=== PATIENT | male | born 1970 | race Caucasian/White ===

== ENCOUNTER 2024-03-25 10:29 | Outpatient (CLI) | payer BC, SELFPAY ==
[2024-03-25] VITALS (8 sets, daily range): BP systolic 118–156; BP diastolic 79–99; PULSE 40–47; RESP 12–18; TEMP 36.7; O2SAT 96–98
--- NOTE | 2024-03-25 10:57 | PDOC.PAIN ---
Date of service: 03/25/24 Time of Service: 11:25 Pain Managment Procedure Note Procedure Note Procedure Note: Lumbar Transforaminal Epidural Steroid Injection ? Location: RIGHT L3 and L4 ? Pre-procedure Diagnosis: M54.17-Radiculopathy, lumbosacral region M54.16 Radiculopathy, lumbar region ? Post-procedure Diagnosis:? The same as above ? Sedation:? none ? Estimated blood loss:? less than 2 cc ? Surgeon:? Mina Dickson MD COMMENT: Patient has right radicular pain to his knee with some foraminal narrowing at L4 through lesser degree at L3 ? Procedure Detail:?? The procedure and potential risks were explained to the patient and informed written consent was obtained. The patient was escorted to the procedure room and placed in the prone position. Pillows were utilized for proper positioning and comfort. Time out was performed in the procedure room with nursing staff confirming the patient's identity, procedure to be performed, allergies, and any blood thinning or anti-platelet medications. The patient's lower back was prepped with ChloraPrep and draped in a sterile fashion. Sterile gloves were used, a face mask was worn, and new single dose vials of all medications were used with the top being swabbed with alcohol and given time to dry prior to withdrawal of medication. A right-sided oblique fluoroscopic view was obtained, with visualization of L4-5. Lidocaine 1% was used to anesthetize the skin. The tip of a 22-gauge, Quincke needle was advanced toward the 6 o'clock position of the superior pedicle at the target level.? It was advanced just under the pedicle to the neural foramen L4-5. Correct needle placement was confirmed through review of the fluoroscopy. Next, following negative aspiration, 1cc's of Omnipaque 240 contrast was injected under live fluoroscopy which showed good flow throughout the epidural space and no evidence of vascular flow or flow into adjacent compartments. Next, following negative aspiration, 7.5mg of preservative-free dexamethasone and 0.5ml of 0.5% bupivacaine was injected. The needle was gently removed.? The procedure was also performed in the same fashion at L3-4.? The patient tolerated the procedure well.? Permanent images saved and recorded. Plan:? Follow up prn COMMENT: If still having pain would proceed with interlaminar at L4?5 with catheter to the right as difficult access to the foramen. If pain is more axial back consider medial branch blocks and radiofrequency ablation.
[2024-03-25] MEDS: Omnipaque 240 MG/ML 50 ML BTL IJ (11:28)
[2024-03-25] MEDS: Bupivacaine 0.5% Pres-Free 10 ML VIAL IJ (11:30)
[2024-03-25] MEDS: Dexamethasone Sod. Phos./Pres-Free 10 MG/ML VIAL IJ (11:31)
[2024-03-25] MEDS: Nerve Block Tray 1 EACH MC (11:31)
--- NOTE | 2024-03-25 18:00 | DI.RAD_ITS ---
Exam(s) XR PAIN CLINIC LUMBAR SP 2V EXAM: XR PAIN CLINIC LUMBAR SP 2V CLINICAL HISTORY: DX: Thoracic Radiculopathy TECHNIQUE: 2D and realtime digital imaging was performed. Radiologist not present. CONTRAST MATERIAL: None. COMPARISON: No exams were available for comparison FINDINGS: Fluoroscopy was provided for pain management therapy. Please refer to procedure report or details. Radiation Exposure Index: Ka,r=22.68 mGy IMPRESSION: As above. RADIATION DOSE DELIVERED:
== END 2024-03-25 10:30 | disposition home or self-care (01) ==
LOC: PC 10:29
PROVIDERS: PCP Internal Medicine; Visit Provider Anesthesiology Pain Medicine
DX: M54.16 Radiculopathy, lumbar region (principal); M54.17 Radiculopathy, lumbosacral region
CPT/HCPCS: 00123; 64483; 64484; 72100; J0665; J1100; Q9967

== ENCOUNTER 2024-12-16 07:06 | Day surgery (SDC) | payer BC, SELFPAY ==
--- NOTE | 2024-12-15 09:15 | W.PREOPHP ---
Assessment and Plan Assessment and plan (1) Encounter for screening colonoscopy: Status: Acute Assessment and plan: We reviewed the role of screening colonoscopy as part of routine health maintenance. I explained the risks and benefits of the proceedure. Eliel had the oppurtiunity to ask questions about colonoscopy. We can proceed with the colonoscopy as planned. History of Present Illness History of Present Illness Chief Complaint: screening colonoscopy Narrative: Eliel is a 54 year old man who needs his first screening colonoscopy. He has no family histyory, nor any symptoms of colon cancer. PFSH All Active Problems Encounter for screening colonoscopy (Acute) Vertebrogenic low back pain (Acute) Corns and callosities (Acute) Lumbar radiculopathy (Acute) MRI completed 10/2022; scheduled to consult with surgeon. Hyperlipidemia (Acute) Hypertension (Chronic) GERD (gastroesophageal reflux disease) (Chronic) DIANA (obstructive sleep apnea) (Chronic) Asthma (Chronic) Allergic rhinitis (Acute) Medical History Tobacco user Spondylosis of lumbar spine Lumbar degenerative disc disease Surgical History History of appendectomy Family History Mother Hypertension Social History Smoking/Tobacco Use Status: Current every day Tobacco Type: cigarettes Smoking packs per day: 0.5 Smoking cigarettes per day: 10.0 Smoking risk assessment performed?: Yes Alcohol Intake: current Alcohol Intake frequency: a few times a month Alcohol type: beer Drug use: Never Substance use type: does not use Household members: spouse and family Housing: house Do you feel safe at home: Yes Do you feel safe in your relationship?: Yes Meds Allergies and Home Medications Allergies Allergy/AdvReac Type Severity Reaction Status Date / Time No Known Allergies Allergy Verified 12/16/24 07:53 Home Medications ?Medication ?Instructions ?Recorded ?Confirmed ?Type albuterol sulfate 90 mcg/actuation 2 puff inhalation Q6H PRN 11/07/22 12/16/24 History aerosol inhaler (ProAir HFA) atorvastatin 20 mg tablet (Lipitor) 20 mg PO QPM 11/07/22 12/16/24 History cetirizine 10 mg capsule (Zyrtec) 10 mg PO DAILY PRN 11/07/22 12/16/24 History omeprazole 40 mg capsule,delayed 40 mg PO DAILY 11/08/22 12/16/24 History release acetaminophen 500 mg tablet 500 mg PO Q6H PRN 02/13/24 12/12/24 History (Tylenol Extra Strength) Exam Const General: cooperative and not in acute distress Neck Neck: normal visual inspection, no lymphadenopathy and supple Resp Effort & Inspection: normal respiratory effort Auscultation: clear to auscultation bilaterally Cardio Jugular venous pressure: no JVD Rate: regular rate Rhythm: regular rhythm Heart Sounds: S1 normal and S2 normal GI Inspection: normal to inspection Palpation: soft, no guarding, no hernias and nontender Percussion: normal to percussion Auscultation: normal bowel sounds Neuro General: patient alert, patient awake and patient oriented x3 Psych Appearance: grossly normal
--- NOTE | 2024-12-15 09:18 | W.PM.DSUDISC ---
Date of service: 12/16/24 Discharge Plan Disposition Patient Disposition: Home Condition: Good Discharge Details Reason For Visit: screening colonoscopy Attending Provider: Jesus Alberto Mandel Primary Care Provider: Lindsay Phillip Home Meds and New Rx's Prescriptions: Continued albuterol sulfate [ProAir HFA] 90 mcg/actuation HFA aerosol inhaler 2 puff inhalation Q6H PRN atorvastatin [Lipitor] 20 mg tablet 20 mg PO QPM Rx Instructions: dose unverified; Zyrtec 10 mg capsule 10 mg PO DAILY PRN Rx Instructions: dose unverified omeprazole 40 mg capsule,delayed release(DR/EC) 40 mg PO DAILY acetaminophen [Tylenol Extra Strength] 500 mg tablet 500 mg PO Q6H PRN Discontinued polyethylene glycol 3350 17 gram/dose powder 238 g PO ONCE Qty: 238 0RF Rx Instructions: take per colonoscopy instructions bisacodyl [Dulcolax (bisacodyl)] 5 mg tablet,delayed release (DR/EC) 5 mg PO ONCE Qty: 4 0RF Rx Instructions: take per colonoscopy instructions Discharge Instructions Instructions: Colon polyps Additional Instructions: He is meeting you today, and I hope you feel well after the procedure. Things went smoothly. I did find, removed, total of 3 polyps today. These were all quite small, and I do not suspect any of them are anything to worry about in particular. I will send these all off to the pathologist for the review. Once I have the results of that analysis, my office will be in touch with recommendations for timing of future colonoscopies. If you need anything, or have any questions in the meantime, please do not hesitate to ask. 1. If tolerated, consume a soft, low fiber diet for 1-2 days. [address] Do not drive, drink alcohol, operate machinery, make critical decisions, or do activities that require coordination or balance for 24 hours. 3. Because air was put into your colon during the procedure, expelling air from your rectum (passing gas or farting) is normal. 4. You may not have a bowel movement for 1-3 days because of the colonoscopy prep. This is normal. 5. Go directly to the emergency room if you notice any of the following: Develop chills (warm to touch), or if you have a thermometer and your temperature is above 101 Difficulty breathing or difficultly swallowing Persistent vomiting Severe abdominal pain, other than gas cramps Severe chest pain Black, tarry stools Any bleeding ? exceeding one tablespoon 6. Call your physician if the site where your intravenous was started becomes red, swollen, painful, and warm to touch. 7. Your physician has reviewed your pre-procedure medications. Please continue to take those medications as previously ordered. You will be given specific information/education regarding any changes to your medications before leaving. Stand Alone Forms: Anesthesia Discharge InstFalguni Cohn (DSU) Activity:: Activity as Tolerated Diet:: As Tolerated Discharge Orders Discharge Orders: Discharge Order (Routine); Ordered 12/15/24 Ordered By: Jesus Alberto Mandel DS: Diagnosis Discharge Diagnosis (1) Encounter for screening colonoscopy: Status: Acute Asessment and Plan: Follow-up on polypectomy results
--- NOTE | 2024-12-15 09:19 | COLE_ITS ---
Date of service: 12/16/24 Time of Service: 09:49 Colonoscopy Report Date of procedure: 12/16/24 Pre-op diagnosis general: screening colonoscopy Post-op diagnosis procedure note: other (Colon polyps) Procedure: colonoscopy with polypectomy Surgeon: Jesus Alberto Mandel Anesthesia Type: General:No Airway Estimated blood loss (mL): 5 Pathology: other (0.25 cm flat polyp at 45 cm, 0.25 cm rectal polyps x 2 (sent a single specimen)) Complications: None Disposition: same day Indications: Eliel is a 54 year old man who needs a screening colonoscopy Prep: Miralax/Dulcolax Procedure Start Time: :13 Procedure End Time: 09:37 Retraction Time: 20 Findings: 0.25 cm flat polyp at 45 cm, 0.25 cm rectal polyps x 2 Procedure Description: After the induction of anesthesia, and with the patient in left lateral decubitus position, I began by performing an external anorectal exam.? Perineum and skin were normal, as was the anal verge.? There was no evidence of external hemorrhoids.? Next, I performed a digital rectal exam.? I did not appreciate any abnormal findings.? Next, I advanced a colonoscope into the rectal vault.? I performed retroflexion.? This appeared normal.? Using insufflation, I then advanced the colonoscope beyond the rectal folds and into the sigmoid colon before advancing towards the cecum. The scope was noted to be in the cecum by identification of the ileocecal valve and appendiceal orifice.? I then began withdrawing the colonoscope using repeated irrigation as necessary for full evaluation of the colonic mucosa. ?Prep was suboptimal, but with copious irrigation, I was able to safely visualize the mucosa. Around 45 cm from the anal verge was a 0.25 cm flat polyp. This was removed with cold forceps with minimal bleeding. Once the scope was withdrawn to the level of the rectum, great care was taken to examine portions of the rectal folds. There were several diminutive hyperplastic appearing polyps within the rectal vault. 2 of these had adenomatous features, under narrowband imaging, and these were removed with cold forceps as a surgical device sales representative sample.? Finally, the scope was withdrawn and the patient was brought to the same-day surgery recovery unit as the anesthetic wore off. ?The findings and instructions were shared with the patient prior to discharge. [place] Bowel Prep Ellsworth Bowel Prep Right Colon: 1 Left Colon: 1 Transverse Colon: 2 Total Score: 4
[2024-12-16 07:53] VITALS: BP 131/82; PULSE 51; RESP 16; TEMP 36.3; O2SAT 98
[2024-12-16] MEDS: Lactated Ringers 1,000 ML 80 ML IV (08:06)
--- NOTE | 2024-12-16 08:09 | W.ANESPRE ---
General Info Date of Service Date Performed: 12/16/24 Height: 5 ft 11 in Weight: 99.2 kg Body Mass Index (BMI): 30.4 Surgical Procedure: Operation Date: 12/16/24 09:05 Proposed Procedure Side Surgeon lauren Mandel MD Meds Allergies and Home Medications Allergies Allergy/AdvReac Type Severity Reaction Status Date / Time No Known Allergies Allergy Verified 12/16/24 07:53 Home Medication ?Medication ?Instructions ?Recorded albuterol sulfate 90 mcg/actuation 2 puff inhalation Q6H PRN 11/07/22 aerosol inhaler (ProAir HFA) atorvastatin 20 mg tablet (Lipitor) 20 mg PO QPM 11/07/22 cetirizine 10 mg capsule (Zyrtec) 10 mg PO DAILY PRN 11/07/22 omeprazole 40 mg capsule,delayed 40 mg PO DAILY 11/08/22 release acetaminophen 500 mg tablet 500 mg PO Q6H PRN 02/13/24 (Tylenol Extra Strength) Current Visit Medications: Current Medications Generic Name Dose Route Start Last Admin Trade Name Freq PRN Reason Stop Dose Admin Ringer's Solution 1,000 mls @ 80 mls/hr 12/16/24 06:00 12/16/24 08:06 IV 12/16/24 23:59 80 mls/hr INFUSION MARIA ELENA Administration IV Miscellaneous Supplies 1 each 12/16/24 06:00 Iv Access IV 12/16/24 23:59 DIRECTED MARIA ELENA Ondansetron HCl 4 mg 12/15/24 09:20 Ondansetron 4 Mg/2 Ml Vial IVP 01/14/25 09:19 Q4H PRN PRN Nausea / Vomiting Sodium Chloride 0 ml 12/16/24 06:00 Normal Saline Flush 10 Ml Syr IV 12/16/24 23:59 PRN PRN Sodium Chloride 0 ml 12/16/24 06:00 Normal Saline 10 Ml Vial IJ 12/16/24 23:59 DIRECTED PRN Sterile Water 0 ml 12/16/24 06:00 Water,Injection,Sterile 10 Ml Vial IJ 12/16/24 23:59 DIRECTED PRN PFSH Active Problems Active Problems: Problem Status Onset Code Encounter for screening colonoscopy Acute Z12.11 Vertebrogenic low back pain Acute M54.51 Corns and callosities Acute L84 Lumbar radiculopathy Acute M54.16 Hyperlipidemia Acute E78.5 Hypertension Chronic I10 GERD (gastroesophageal reflux disease) Chronic K21.9 DIANA (obstructive sleep apnea) Chronic G47.33 Asthma Chronic J45.909 Allergic rhinitis Acute J30.9 Medical History Medical History Tobacco user Spondylosis of lumbar spine Lumbar degenerative disc disease Surgical History Surgical History History of appendectomy Tobacco Smoking/Tobacco Use Status: Current every day Tobacco Type: cigarettes Smoking packs per day: 0.5 Smoking cigarettes per day: 10.0 Passive smoking exposure: Yes Alcohol Alcohol Intake: current Alcohol intake frequency: a few times a month Alcohol type: beer Substance Use Substance use: Never Substance use type: does not use Vital Signs and Lab Results Vital Signs Most Recent Vital Signs in EMR: Most Recent Vital Signs Temp Pulse Resp BP Pulse Ox 36.3 C L 51 L 16 131/82 98 12/16/24 07:53 12/16/24 07:53 12/16/24 07:53 12/16/24 07:53 12/16/24 07:53 Lab Results Blood Type / Crossmatch: No Data to Display Complete Blood Count: No Data to Display Complete Metabolic Panel: No Data to Display Liver Function Panel: No Data to Display Coagulation Panel: No Data to Display Cardiac Panel: No Data to Display Arterial Blood Gas: No Data to Display Venous Blood Gas: No Data to Display Pancreas Panel: No Data to Display Thyroid Panel: No Data to Display Infectious Disease: No Data to Display Blood Cultures: No Data to Display Toxicology Panel: No Data to Display Anesthesia Assessment and Plan Anesthesia History Personal History: No History of Anesthesia Complications Family History: No Family History of Anesthesia Complications Exercise Tolerance Exercise Tolerance: Metabolic Equivalents>4 Pertinent Negatives Pertinent Negatives: No Symptoms of GERD (Rx) Cardiac & Pulmonary Exam Cardiac Exam: Normal S1/S2 Heart Sounds Pulmonary Exam: Clear Bilateral Breath Sounds (Smoker 1 PPD) Implantable Cardiac Device Does patient have a Pacemaker or an ICD?: No Airway Exam Known Difficult Airway: No Mallampati Class: 2 Mouth Opening: Normal (> 3cm) Thyromental Distance: Greater than 3 cm Neck Range of Motion: Full ROM Neck Circumference: Normal Teeth Condition: Normal Dentition ASA Classification ASA Score: ASA 2 Emergency Case?: No NPO Status NPO Status: NPO Clears >2 hours, Solids >8 hours Anesthesia Plan Resuscitation Status: Full Code Anesthesia Technique: General Anesthesia Airway Planned: Natural Airway Monitors Used: Standard Monitors
[2024-12-16 08:37] VITALS: BMI 30.4
--- NOTE | 2024-12-16 09:28 | BOWEL_PTH ---
PATIENT: Eliel Chambers LOC: [facility] U#:[id number] AGE/SX: 54/M ROOM: RE12/16/[address]: Jesus Alberto Mandel MD : [id number] BED: DIS: 12/16/2024 SPEC #: [id number] RECD: 12/16/24 13:06 STATUS: KARLY REQ #: [id number] ASAF: 12/16/24 09:[address]: Jesus Alberto Mandel DEPT: Surgical Specimen RECD BY: Carmen Coreas ENTERED: 12/16/24 13:07 SP TYPE: Bowel OTHR DR: Lindsay Phillip Tissues: 1 - BIOPSY BOWEL 2 - BIOPSY BOWEL Procedures: GROSS AND MICRO LEVEL 4 Comments: [id number]
[2024-12-16 09:46] VITALS: BP 98/69; PULSE 58; RESP 17; TEMP 36.2; O2SAT 92
--- NOTE | 2024-12-16 09:55 | W.ANESPOSTOP ---
Postoperative Evaluation Date, Time and Location Date Performed: 12/16/24 Time Performed: 09:55 Patient Location: Day Surgery Unit Vital Signs Most Recent Imported Vital Signs: Most Recent Vital Signs Temp Pulse Resp BP Pulse Ox 36.2 C L 58 L 17 98/69 L 92 12/16/24 09:46 12/16/24 09:46 12/16/24 09:46 12/16/24 09:46 12/16/24 09:46 Pain Score Most Recent Pain Score: Most Recent Pain Score Pain Level 0 12/16/24 09:46 Assessment Mental Status: Awake (Alert & Oriented to Patient Baseline) Airway and Respiratory Function: Patent airway with normal (patient baseline) respiratory exam Cardiovascular Function: Hemodynamically Stable Hydration Status: Adequately Hydrated Nausea & Vomiting: No Nausea or Vomiting Pain: Pt. Denies Any Pain Peripheral Nerve Block: Patient did not receive a nerve block
[2024-12-16 10:18] VITALS: BP 108/79; PULSE 54; RESP 16; TEMP 36.4; O2SAT 96
== END 2024-12-16 10:37 | disposition home or self-care (01) ==
LOC: SUR 07:06
PROVIDERS: PCP Internal Medicine; Visit Provider Surgery
PROC: 0DJD8ZZ Inspection of Lower Intestinal Tract, Via Natural or Artificial Opening Endoscopic (ICD-10-PCS; CPT 45378; principal; 2024-12-16 09:00)
DX: Z12.11 Encounter for screening for malignant neoplasm of colon (principal); D12.5 Benign neoplasm of sigmoid colon; K62.1 Rectal polyp
CPT/HCPCS: 45380; 88305; J2003; J2704